=== PATIENT | female | born 1960 | race Caucasian/White ===

== ENCOUNTER → 2016-07-27 | Outpatient (CLI) | payer OTHER | LOC: US 08:15 | DX: R10.9 Unspecified abdominal pain (principal) | CPT/HCPCS: 76705 ==

== ENCOUNTER → 2016-08-06 | Outpatient (CLI) | payer OTHER | LOC: CT 15:28 | DX: R10.0 Acute abdomen (principal); R91.1 Solitary pulmonary nodule ==

== ENCOUNTER 2020-09-01 16:28 | Emergency (ER) | payer BC, OTHER | END 2020-09-01 17:30 | disposition home or self-care (01) | LOC: ER1 16:28 | DX: S93.402A Sprain of unspecified ligament of left ankle, initial encounter (principal); I11.9 Hypertensive heart disease without heart failure; Z90.710 Acquired absence of both cervix and uterus; F17.210 Nicotine dependence, cigarettes, uncomplicated; Z79.01 Long term (current) use of anticoagulants; X50.1XXA Overexertion from prolonged static or awkward postures, initial encounter; Y92.009 Unspecified place in unspecified non-institutional (private) residence as the place of occurrence of the external cause | CPT/HCPCS: 73610; 99283 ==

== ENCOUNTER 2021-01-30 16:25 | Inpatient (IN) | payer BC ==
[~2021-01-30] VITALS: Ht 162.6 cm; Wt 65.8 kg
[~2021-01-30 16:25] MED LIST: WARFARIN SODIUM5 MG PO
[2021-01-30 19:15] LABS: HEMOGLOBIN 16.2 gm/dl (12.3-15.3); RED BLOOD COUNT 5.48 M/UL (4.00-5.10); WHITE BLOOD COUNT 10.8 K/UL (4.5-11.0)
[2021-01-30 19:33] LABS: BORDETELLA PARAPERTUSSIS Not Detected (Not Detectd); BORDETELLA PERTUSSIS Not Detected (Not Detectd); CHLAMYDIA PNEUMONIAE Not Detected (Not Detectd); CORONAVIRUS HKU1 Not Detected (Not Detectd); CORONAVIRUS NL63 Not Detected (Not Detectd); CORONAVIRUS OC43 Not Detected (Not Detectd); CORONOAVIRUS 229E Not Detected (Not Detectd); HUMAN METAPNEUMOVIRUS Not Detected (Not Detectd); HUMAN RHINOVIRUS/ENTEROVIRUS Not Detected (Not Detectd); INFLUENZA A Not Detected (Not Detectd); INFLUENZA B Not Detected (Not Detectd); MYCOPLASMA PNEUMONIAE Not Detected (Not Detectd); PARAINFLUENZA VIRUS 1 Not Detected (Not Detectd); PARAINFLUENZA VIRUS 2 Not Detected (Not Detectd); PARAINFLUENZA VIRUS 3 Not Detected (Not Detectd); PARAINFLUENZA VIRUS 4 Not Detected (Not Detectd); RESPIRATORY SYNCYTIAL VIRUS Not Detected (Not Detectd)
[2021-01-30 19:43] LABS: BUN/CREATININE RATIO 16 (0-10)
[2021-01-30 20:33] LABS: SARS-CoV-2 NOT DETECTED (Not Detectd)
[2021-01-30] MEDS ORDERED: CEFUROXIME500 MG PO (23:51)
[2021-01-31] MEDS ORDERED: WARFARIN SODIUM2 MG PO (03:05)
[2021-01-31] MEDS ORDERED: WARFARIN SODIUM4 MG PO (03:05)
[2021-01-31 04:48] LABS: BUN/CREATININE RATIO 14 (0-10)
[2021-01-31 16:16] LABS: ACINETOBACTER BAUMANNII Not Detected (Negative); CANDIDA ALBICANS Not Detected (Negative); CANDIDA KRUSEI Not Detected (Negative); CANDIDA TROPICALIS Not Detected (Negative); ESCHERICHIA COLI Not Detected (Negative); HAEMOPHILUS INFLUENZAE Not Detected (Negative); KLEBSIELLA OXYTOCA Not Detected (Negative); KLEBSIELLA PNEUMONIAE Not Detected (Negative); KPC-CARBAPENEM-RESISTANCE GENE Not Detected (Negative); PROTEUS Not Detected (Negative); PSEUDOMONAS AERUGINOSA Not Detected (Negative); SERRATIA MARCESANS Not Detected (Negative); STAPHYLOCOCCUS Not Detected (Negative); STAPHYLOCOCCUS AUREUS Not Detected (Negative); STREP AGALACTIAE (GROUP B) Not Detected (Negative); STREP PYOGENES (GROUP A) Not Detected (Negative); STREPTOCOCCUS Not Detected (Negative); mecA (METHICILLIN RESIST GENE Not Detected (Negative); vanA/B (VANCOMYCIN RESIST GENE Not Detected (Negative)
[2021-01-31 18:53] LABS: ENTEROCOCCUS DETECTED (Negative)
[2021-02-01 04:18] LABS: HEMOGLOBIN 12.1 gm/dl (12.3-15.3); RED BLOOD COUNT 4.21 M/UL (4.00-5.10)
[2021-02-01 04:41] LABS: BUN/CREATININE RATIO 12 (0-10)
[2021-02-01 10:10] LABS: HBSAG SCREEN Negative (Negative); HEP A AB, IGM Negative (Negative); HEP B CORE AB, IGM Negative (Negative); HEP C VIRUS AB 0.2 (0.0-0.9)
[2021-02-02 04:08] LABS: RED BLOOD COUNT 4.17 M/UL (4.00-5.10); WHITE BLOOD COUNT 4.9 K/UL (4.5-11.0)
[2021-02-02 04:47] LABS: BUN/CREATININE RATIO 7 (0-10)
[2021-02-03 05:44] LABS: HEMOGLOBIN 11.7 gm/dl (12.3-15.3); RED BLOOD COUNT 4.08 M/UL (4.00-5.10); WHITE BLOOD COUNT 4.9 K/UL (4.5-11.0)
[2021-02-03 06:44] LABS: BUN/CREATININE RATIO 6 (0-10)
[2021-02-04 00:57] LABS: HEMOGLOBIN 11.5 gm/dl (12.3-15.3); RED BLOOD COUNT 4.04 M/UL (4.00-5.10)
[2021-02-04 03:20] LABS: BUN/CREATININE RATIO 9 (0-10)
== END 2021-02-04 18:27 | disposition home health service (06) | DRG 872 ==
LOC: ER1 16:25 → M/S 01-31 01:04 → CDU 01-31 01:04 → M/S 01-31 02:49
PROVIDERS: Internal Medicine; Physician Assistant Medical; Preventive Medicine Occupational Medicine; ADMIT Internal Medicine
PROC: B24BZZZ Ultrasonography of Heart with Aorta (ICD-10-PCS; 2021-02-01)
PROC: B24BZZZ Ultrasonography of Heart with Aorta (ICD-10-PCS; principal; 2021-02-02)
DX: A41.81 Sepsis due to Enterococcus (principal); N30.00 Acute cystitis without hematuria; E87.2 Acidosis; D69.6 Thrombocytopenia, unspecified; Z20.822 Contact with and (suspected) exposure to COVID-19; F17.210 Nicotine dependence, cigarettes, uncomplicated; J32.9 Chronic sinusitis, unspecified; E80.6 Other disorders of bilirubin metabolism; I07.1 Rheumatic tricuspid insufficiency; R79.1 Abnormal coagulation profile; I25.10 Atherosclerotic heart disease of native coronary artery without angina pectoris; Z95.2 Presence of prosthetic heart valve; Z90.710 Acquired absence of both cervix and uterus; Z83.3 Family history of diabetes mellitus; Z79.01 Long term (current) use of anticoagulants
CPT/HCPCS: ECHO; 36415; 70486; 71045; 80053; 80074; 80202; 81001; 82550; 82553; 82962; 83605; 83690; 83735; 84484; 84550; 85025; 85027; 85049; 85610; 85652; 85730; 86140; 87040; 87077; 87086; 87150; 87186; 87633; 93306; 93312; 93320; 94640; 94664; 94760; 96374; 96375; 99285; C1751; J0290; J0696; J1200; J1644; J2185; J2250; J2310; J2405; J2543; J3010; J3370; J7030; J7070; Q9967

== ENCOUNTER → 2021-03-19 | Outpatient (CLI) | payer BC ==
[~2021-03-19] MED LIST changes: +CEFUROXIME500 MG PO; +WARFARIN SODIUM2 MG PO; +WARFARIN SODIUM4 MG PO
== END ==
LOC: KOH-I 15:53
DX: J06.9 Acute upper respiratory infection, unspecified (principal); R06.02 Shortness of breath; R91.8 Other nonspecific abnormal finding of lung field
CPT/HCPCS: 71046